=== PATIENT | female | born 1940 | race Caucasian/White ===

== ENCOUNTER 2018-02-05 03:23 | Inpatient (IN) | payer MEDICARE ==
[~2018-02-05] VITALS: Ht 162.6 cm; Wt 46.6 kg
[~2018-02-05 03:23] MED LIST: AMLO5TAB4 PO; ASPI-621 PO; ATOR20TA9 PO; HYDR12.53 PO; LEVO88TA4 PO; LOSA100T6 PO; OMEP20CA14 PO
[2018-02-05 04:31] LABS: BASOPHILS % (AUTO) 0 % (0-1); EOSINOPHILS # (AUTO) 0.06 x10^3/uL (0-0.4); EOSINOPHILS % (AUTO) 1 % (1-7); LYMPHOCYTES % (AUTO) 5 % (22-44); MD NO; MEAN CORPUSCULAR HEMOGLOBIN 29.2 pg (27.0-34.8); MEAN CORPUSCULAR HGB CONC 33.6 g/dL (32.4-35.8); MEAN CORPUSCULAR VOLUME 86.9 fL (80-100); MEAN PLATELET VOLUME 8.8 fL (7.4-10.4); MONOCYTES % (AUTO) 3 % (2-9); NEUTROPHILS # (AUTO) 10.77 x10^3/uL (1.8-6.8); NEUTROPHILS % (AUTO) 91 % (42-75); PLATELET COUNT 187 x10^3/uL (130-400); RED BLOOD COUNT 4.57 x10^6/uL (3.82-5.3); RED CELL DISTRIBUTION WIDTH 15.2 % (9.6-15.2)
[2018-02-05 04:43] LABS: ALANINE AMINOTRANSFERASE 44 U/L (12-78); ALBUMIN 3.1 g/dL (3.4-5.0); ANION GAP 8 mmol/L (5-15); CALCIUM 8.5 mg/dL (8.5-10.1); CHLORIDE 102 mmol/L (98-107); CREATININE 0.86 mg/dL (0.55-1.02)
[2018-02-05 04:46] LABS: ALKALINE PHOSPHATASE 85 U/L (45-117); BILIRUBIN,TOTAL 0.5 mg/dL (0.2-1.0); TOTAL PROTEIN 6.6 g/dL (6.4-8.2)
[2018-02-05] MEDS ORDERED: SODIUM CHLORIDE 0.9% 1,000ML IVBOLUS ONE (05:00)
[2018-02-05 05:11] LABS: MICROSCOPIC AUTO
[2018-02-05 05:15] LABS: CULTURE INDICATED? YES
[2018-02-05] MEDS ORDERED: CEFTRIAXONE PMX 1GM/50ML 50 ML ONE (05:47)
[2018-02-05] MEDS ORDERED: CEFTRIAXONE PMX 1GM/50ML 50 ML IV ONE ×2 (06:00→07:30)
[2018-02-05] MEDS ORDERED: OXYcodone IR 5MG TABLET PO PRN (07:00)
[2018-02-05] MEDS ORDERED: POLYETHYLENE GLYCOL 17 GM PACKET PO PRN (07:00)
[2018-02-05] MEDS ORDERED: ONDANSETRON ODT 4 MG PO PRN (07:00)
[2018-02-05] MEDS ORDERED: hydrALAzine 20 MG/ML, 1ML IVPush PRN (07:00)
[2018-02-05] MEDS ORDERED: BISACODYL 10 MG SUPP PR PRN (07:00)
[2018-02-05] MEDS ORDERED: morphine SULFATE 10 MG/ML, 1ML IVPush PRN (07:00)
[2018-02-05] MEDS ORDERED: ONDANSETRON 2MG/ML, 2ML IVPush PRN (07:00)
[2018-02-05] MEDS ORDERED: PROMETHAZINE 25 MG/ML, 1ML IM PRN (07:00)
[2018-02-05] MEDS ORDERED: DOCUSATE 100 MG CAPSULE PO PRN (07:00)
[2018-02-05] MEDS ORDERED: PLEASE ENTER WEIGHT MC SCH (07:30)
[2018-02-05] MEDS ORDERED: POTASSIUM CHLORIDE 20 MEQ TAB.ER.PRT PO ONE (07:30)
[2018-02-05] MEDS ORDERED: PLEASE ENTER HEIGHT AND WEIGHT MC SCH (07:30)
[2018-02-05 07:34] LABS: FREE T4 (FREE THYROXINE) 1.53 ng/dL (0.76-1.46); THYROID STIMULATING HORMONE 0.835 mIU/L (0.358-3.740)
[2018-02-05 07:40] VITALS: BP 118/72
[2018-02-05 08:26] LABS: HEMOGLOBIN A1C 5.7 % (4.2-6.3)
[2018-02-05] MEDS: ACETAMINOPHEN 325 MG TABLET PO PRN ×2 (08:58→17:06)
[2018-02-05] MEDS: HEPARIN 5,000 UNITS/ML, 1ML SQ SCH ×2 (08:59→17:06)
[2018-02-05] MEDS: OMEPRAZOLE 20 MG PO SCH (09:00)
[2018-02-05] MEDS: TEMPLATE NON-FORMULARY MED. (Losartan Potassium** 100 MG) PO SCH (09:00)
[2018-02-05] MEDS: SODIUM CHLORIDE 0.9% 1,000 ML IV SCH ×2 (09:03→16:59)
[2018-02-05] MEDS: HYDROCHLOROTHIAZIDE 12.5 MG CAPSULE PO SCH (09:04)
[2018-02-05] MEDS: ASPIRIN 81 MG TABLET EC PO SCH (09:04)
[2018-02-05 09:07] VITALS: BP 103/83
[2018-02-05 12:55] VITALS: BP 99/58
[2018-02-05 19:15] VITALS: BP 102/63
[2018-02-05] MEDS: ATORVASTATIN 20 MG TABLET PO SCH (19:59)
[2018-02-06 00:15] VITALS: BP 110/65
[2018-02-06] MEDS: HEPARIN 5,000 UNITS/ML, 1ML SQ SCH ×3 (02:06→18:00)
[2018-02-06] MEDS ORDERED: CEFTRIAXONE PMX 2GM/50ML 50 ML IV SCH (05:00)
[2018-02-06] MEDS: CEFTRIAXONE PMX 2GM/50ML 50 ML IV SCH (05:00)
[2018-02-06] MEDS: LEVOTHYROXINE 88 MCG TABLET PO SCH (05:04)
[2018-02-06 05:41] LABS: BASOPHILS # (AUTO) 0.02 x10^3/uL (0-0.1); BASOPHILS % (AUTO) 0 % (0-1); EOSINOPHILS # (AUTO) 0.02 x10^3/uL (0-0.4); EOSINOPHILS % (AUTO) 0 % (1-7); LYMPHOCYTES # (AUTO) 1.05 x10^3/uL (1-3.4); LYMPHOCYTES % (AUTO) 12 % (22-44); MD NO; MEAN CORPUSCULAR HGB CONC 33.8 g/dL (32.4-35.8); MEAN CORPUSCULAR VOLUME 85.7 fL (80-100); MEAN PLATELET VOLUME 9.9 fL (7.4-10.4); MONOCYTES # (AUTO) 0.45 x10^3/uL (0.2-0.8); MONOCYTES % (AUTO) 5 % (2-9); NEUTROPHILS % (AUTO) 82 % (42-75); PLATELET COUNT 162 x10^3/uL (130-400); RED BLOOD COUNT 4.19 x10^6/uL (3.82-5.3); RED CELL DISTRIBUTION WIDTH 15.4 % (9.6-15.2)
[2018-02-06 05:47] LABS: ALANINE AMINOTRANSFERASE 73 U/L (12-78); ALBUMIN 2.7 g/dL (3.4-5.0); ANION GAP 8 mmol/L (5-15); CALCIUM 7.9 mg/dL (8.5-10.1); CHLORIDE 104 mmol/L (98-107); CREATININE 0.68 mg/dL (0.55-1.02)
[2018-02-06 05:49] LABS: ALKALINE PHOSPHATASE 85 U/L (45-117); BILIRUBIN,TOTAL 0.6 mg/dL (0.2-1.0); CHOL/HDL RATIO 2.7; CHOLESTEROL, TOTAL 149 mg/dL (140-239); HDL CHOL % 38 % (28-40); HDL CHOLESTEROL (DIRECT) 56 mg/dL (40-60); LDL CHOLESTEROL,CALCULATED 81 mg/dL (54-169); LDL/HDL RATIO 1.4 (0.5-3.0); TOTAL PROTEIN 5.9 g/dL (6.4-8.2); TRIGLYCERIDES 59 mg/dL (50-200); VLDL CHOLESTEROL 12 mg/dL (0-25)
[2018-02-06 07:00] VITALS: BP 128/67
[2018-02-06] MEDS: OMEPRAZOLE 20 MG PO SCH (09:00)
[2018-02-06] MEDS: TEMPLATE NON-FORMULARY MED. (Losartan Potassium** 100 MG) PO SCH (09:00)
[2018-02-06] MEDS: ASPIRIN 81 MG TABLET EC PO SCH (09:26)
[2018-02-06] MEDS: HYDROCHLOROTHIAZIDE 12.5 MG CAPSULE PO SCH (09:26)
[2018-02-06] MEDS ORDERED: MAGNESIUM SULFATE PMX 2GM/50ML 50 ML IV ONE (09:30)
[2018-02-06] MEDS: MAGNESIUM CHLORIDE 64 MG TABLET.DR PO SCH ×2 (10:29→21:53)
[2018-02-06 12:55] VITALS: BP 145/73
[2018-02-06 18:39] VITALS: BP 110/63
[2018-02-06] MEDS: ATORVASTATIN 20 MG TABLET PO SCH (21:53)
[2018-02-07 00:12] VITALS: BP 132/73
[2018-02-07] MEDS: HEPARIN 5,000 UNITS/ML, 1ML SQ SCH ×3 (02:01→18:01)
[2018-02-07] MEDS: CEFTRIAXONE PMX 2GM/50ML 50 ML IV SCH (05:26)
[2018-02-07] MEDS: LEVOTHYROXINE 88 MCG TABLET PO SCH (05:27)
[2018-02-07 06:44] VITALS: BP 133/77
[2018-02-07] MEDS: MAGNESIUM CHLORIDE 64 MG TABLET.DR PO SCH ×2 (09:56→21:39)
[2018-02-07] MEDS: HYDROCHLOROTHIAZIDE 12.5 MG CAPSULE PO SCH (09:56)
[2018-02-07] MEDS: ASPIRIN 81 MG TABLET EC PO SCH (09:56)
[2018-02-07] MEDS: LOSARTAN 50MG TABLET PO SCH (09:56)
[2018-02-07] MEDS: OMEPRAZOLE 20 MG CAPSULE.DR PO SCH (09:56)
[2018-02-07] MEDS ORDERED: MEROPENEM 500 MG in SODIUM CHLORIDE 0.9% 100 ML IV SCH (10:00)
[2018-02-07 12:13] VITALS: BP 178/75
[2018-02-07] MEDS: CEFTAZIDIME 1,000 MG in SODIUM CHLORIDE 0.9% 50 ML IV SCH ×2 (16:21→23:23)
[2018-02-07 18:59] VITALS: BP 152/76
[2018-02-07] MEDS: ATORVASTATIN 20 MG TABLET PO SCH (21:39)
[2018-02-08] MEDS: HEPARIN 5,000 UNITS/ML, 1ML SQ SCH ×3 (02:25→18:00)
[2018-02-08 02:54] VITALS: BP 144/80
[2018-02-08] MEDS: LEVOTHYROXINE 88 MCG TABLET PO SCH (04:51)
[2018-02-08] MEDS: CEFTAZIDIME 1,000 MG in SODIUM CHLORIDE 0.9% 50 ML IV SCH ×2 (06:40→15:03)
[2018-02-08 07:00] VITALS: BP 150/74
[2018-02-08] MEDS: OMEPRAZOLE 20 MG CAPSULE.DR PO SCH (08:49)
[2018-02-08] MEDS: HYDROCHLOROTHIAZIDE 12.5 MG CAPSULE PO SCH (08:49)
[2018-02-08] MEDS: ASPIRIN 81 MG TABLET EC PO SCH (08:49)
[2018-02-08] MEDS: MAGNESIUM CHLORIDE 64 MG TABLET.DR PO SCH (08:49)
[2018-02-08] MEDS: LOSARTAN 50MG TABLET PO SCH (08:49)
[2018-02-08] MEDS ORDERED: LIDOCAINE-MPF 1%, 2ML ONE (13:27)
[2018-02-08 14:30] VITALS: BP 134/80
[2018-02-08] MEDS ORDERED: POLY17PO5 PO (15:19)
[2018-02-08] MEDS ORDERED: CEFT1VIA7 IV (15:19)
== END 2018-02-08 18:15 | DRG 872 ==
LOC: ED 05:34 → EDIP 05:54 → 3NE 07:16
PROVIDERS: ADMIT Internal Medicine; ATTEND Internal Medicine
PROC: 02HV33Z Insertion of Infusion Device into Superior Vena Cava, Percutaneous Approach (ICD-10-PCS; principal; 2018-02-08)
PROC: B548ZZA Ultrasonography of Superior Vena Cava, Guidance (ICD-10-PCS; 2018-02-08)
DX: A41.52 Sepsis due to Pseudomonas (principal); E44.0 Moderate protein-calorie malnutrition; N39.0 Urinary tract infection, site not specified; Z68.1 Body mass index [BMI] 19.9 or less, adult; R65.20 Severe sepsis without septic shock; E87.6 Hypokalemia; I12.9 Hypertensive chronic kidney disease with stage 1 through stage 4 chronic kidney disease, or unspecified chronic kidney disease; K21.9 Gastro-esophageal reflux disease without esophagitis; B96.1 Klebsiella pneumoniae [K. pneumoniae] as the cause of diseases classified elsewhere; E78.5 Hyperlipidemia, unspecified; E89.0 Postprocedural hypothyroidism; N18.2 Chronic kidney disease, stage 2 (mild); Z85.3 Personal history of malignant neoplasm of breast; Z90.11 Acquired absence of right breast and nipple; Z88.0 Allergy status to penicillin; Z79.899 Other long term (current) drug therapy; Z87.891 Personal history of nicotine dependence; Z79.82 Long term (current) use of aspirin
CPT/HCPCS: 36415; 36569; 71045; 76937; 77001; 80053; 80061; 81001; 82306; 82607; 83036; 83605; 83735; 84145; 84439; 84443; 85025; 87040; 87077; 87086; 87186; J0696; J0713; J1644; J2185; J2405; J3490; C1751; J2270; J3475; J7030

== ENCOUNTER 2018-02-24 14:01 | Emergency (ER) | payer MEDICARE ==
[~2018-02-24] VITALS: Ht 162.6 cm; Wt 68.0 kg
[~2018-02-24 14:01] MED LIST changes: +CEFT1VIA7 IV; +POLY17PO5 PO
[2018-02-24 14:04] VITALS: BP 180/86
[2018-02-24] MEDS ORDERED: DIPH,PERTUSS(ACELL),TET VAC/PF 0.5 ML IM-VACC ONE ×2 (15:00→15:06)
== END 2018-02-24 15:59 | disposition home or self-care (01) ==
LOC: ED 15:53
DX: S00.01XA Abrasion of scalp, initial encounter (principal); I10 Essential (primary) hypertension; W01.0XXA Fall on same level from slipping, tripping and stumbling without subsequent striking against object, initial encounter; Y93.89 Activity, other specified; Y92.009 Unspecified place in unspecified non-institutional (private) residence as the place of occurrence of the external cause; Y99.8 Other external cause status
CPT/HCPCS: 90471; 90715; 99283